=== PATIENT | female | born 1995 | race African-American/Black ===

== ENCOUNTER 2021-08-25 19:34 | Emergency (ER) | payer SELFPAY ==
[~2021-08-25] VITALS: Ht 170.2 cm; Wt 73.5 kg
--- NOTE | 2021-08-25 19:37 | NUR ---
Dr. Sanchez at [facility] to exam patient.
[2021-08-25] MEDS ORDERED: DIVALPROEX 500 MG TABEC PO ONE (19:40)
[2021-08-25 19:45] VITALS: BP 125/74
--- NOTE | 2021-08-25 19:52 | NUR ---
Patient refused blood drawn, Dr. Sanchez notified.
--- NOTE | 2021-08-25 20:15 | NUR ---
PT SEEN BY DR STEPHEN. PT REFUSED BLOOD DRAW AND UA.
--- NOTE | 2021-08-25 20:17 | NUR ---
Patient spoke with Dr. Sanchez and requested to go home.
--- NOTE | 2021-08-25 20:30 | NUR ---
PT ACTING IRRATIONAL AND YELLING WHILE WALKING AROUND THE ER. PT SIGNED AMA AND [facility]BER WAS CALLED FOR PT. PT ARGUING WITH STAFF AND WALKOD OFF THE PROPERTY PRIOR TO UBER ARRIVAL.
--- NOTE | 2021-08-25 20:30 | NUR ---
Patient does not wish to proceed with medical care recommended by DR STEPHEN. Patient given information related to possible complications, up to and including , which could occur as a result of leaving hospital at this time. Patient verbalizes understanding of risks involved leaving against medical advice. Patient has signed AMA form.
== END 2021-08-25 20:25 | disposition left against medical advice (07) ==
LOC: MED 19:34
DX: R56.9 Unspecified convulsions (principal)
CPT/HCPCS: 93005; 99283

== ENCOUNTER 2022-05-18 00:25 | Emergency (ER) | payer SELFPAY ==
[~2022-05-18] VITALS: Ht 167.6 cm; Wt 61.7 kg
[2022-05-18 00:25] VITALS: BP 144/86
--- NOTE | 2022-05-18 00:33 | NUR ---
Gina hook in [facility] - 05/18/22 at 0033 by CHATA PT DIONY W[place]. TAKEN TO BED 9
--- NOTE | 2022-05-18 00:33 | NUR ---
PT BIBA TO BED 09
[2022-05-18] MEDS ORDERED: LORazepam 2 MG/ML VIAL IM ONE ×2 (00:35→07:35)
--- NOTE | 2022-05-18 01:23 | NUR ---
Patient resting in bed, awake, chest rise and fall symmetrical, no c/o pain or s/s of distress.
--- NOTE | 2022-05-18 03:10 | NUR ---
Patient resting in bed with eyes closed, chest rise and fall symmetrical, no c/o pain or s/s of distress.
--- NOTE | 2022-05-18 04:15 | NUR ---
Gina hook in ED - 05/18/22 at 0428 by RYLEE F/C INSERTED WITH IMMEDIATE RETURN CLEAR ALEXANDER COLORED URINE. UA OBTAINED AND SENT TO LAB
--- NOTE | 2022-05-18 05:09 | NUR ---
Patient resting in bed with eyes closed, chest rise and fall symmetrical, no c/o pain or s/s of distress.
[2022-05-18 05:30] VITALS: BP 128/74
--- NOTE | 2022-05-18 06:55 | NUR ---
Patient resting in bed with eyes closed, chest rise and fall symmetrical, no c/o pain or s/s of distress.
--- NOTE | 2022-05-18 07:11 | NUR ---
TELEPSYCH, DR. DIETZ, SPEAKING WITH PATIENT VIA REMOTE COMMUNICATION
--- NOTE | 2022-05-18 07:15 | NUR ---
Change of shift report given to AM shift Nurse Giselle. AM shift Nurse Giselle verbalized understanding of report, no further questions.
--- NOTE | 2022-05-18 07:18 | NUR ---
PT MOVED TO ER BED 5, SI PRECAUTIONS IN PLACE
--- NOTE | 2022-05-18 07:34 | NUR ---
RECEIVED CALL BACK FROM DR DIETZ, CALL TRANSFERRED TO DR WORLEY. PT TO BE PLACED ON 5150 HOLD. [facility] [place] CONTACTED
[2022-05-18] MEDS ORDERED: HALOPERIDOL IM 5 MG/ML VIAL IM ONE (07:35)
[2022-05-18] MEDS ORDERED: diphenhydrAMINE 50 MG/ML VIAL IM ONE (07:35)
--- NOTE | 2022-05-18 07:39 | NUR ---
PT BECAME INCREASINGLY AGGRESSIVE WITH STAFF, THROWING TRASH CANS. PT RAN OUT OF ER. [facility] CONTACTED FOR ASSISTANCE.
--- NOTE | 2022-05-18 07:51 | NUR ---
[place] [employer] OFFICER ELDER HERE, REPORT GIVEN
--- NOTE | 2022-05-18 08:29 | NUR ---
[place] [employer] OFFICERS ALEXA AND JORGE IN ER. STATED THEY HAVE THE PT WITH ANOTHER OFFICER OFF [facility]. STATED THEY DID A 5150 EVALUATION ON HER AND SHE DOES NOT MEET CRITERIA FOR HOLD. STATED THEY ARE TAKING HER TO LONG-TERM. DR GROSSMAN PRESENT FOR CONVERSATION. SENIOR DESIGNER DAVION MADE AWARE. PATIENT ELOPED FROM FACILITY. DISCHARGE INSTRUCTIONS NOT GIVEN TO PATIENT. DR. GROSSMAN NOTIFIED. Addendum: 05/18/22 at 0847 by [email or web address] INCIDENT #[id number]
== END 2022-05-18 07:39 | disposition left against medical advice (07) ==
LOC: MED 00:25
DX: F15.10 Other stimulant abuse, uncomplicated (principal); Z59.00 Homelessness unspecified
CPT/HCPCS: 96372; 99285; J1200; J1630; J2060

== ENCOUNTER 2022-06-12 21:01 | Emergency (ER) | payer SELFPAY ==
[~2022-06-12] VITALS: Ht 170.2 cm; Wt 68.0 kg
[2022-06-12 21:02] VITALS: BP 125/64
--- NOTE | 2022-06-12 21:06 | NUR ---
PT TO BED 6
--- NOTE | 2022-06-12 21:14 | NUR ---
PT IN GOWN ALL PERSONAL BELONGINGS TAGGED AND BAGGED. ALL ITEMS IN ROOM REMOVED FOR PT SAFTEY
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
[2022-06-12] MEDS ORDERED: NACL 0.9% 1,000 ML IV ONE (21:30)
[2022-06-12 22:25] LABS: BASOPHILS % (AUTO) 0.4 % (0.0-2.0); EOSINOPHILS # (AUTO) 0.3 K/uL (0-0.4); HEMATOCRIT 33.1 % (36-48); HEMOGLOBIN 11.2 g/dL (12.0-16.0); LYMPHOCYTES # (AUTO) 2.5 K/uL (2.5-16.5); LYMPHOCYTES % (AUTO) 29.6 % (20.5-51.1); MEAN CORPUSCULAR HEMOGLOBIN 29 pg (27-31); MEAN CORPUSCULAR HGB CONC 34 g/dL (33-37); MEAN CORPUSCULAR VOLUME 86.4 fL (80-94); MONOCYTES # (AUTO) 0.5 K/uL (0.8-1.0); MONOCYTES % (AUTO) 6.5 % (1.7-9.3); NEUTROPHILS # (AUTO) 5.1 K/uL (1.8-7.7); NEUTROPHILS % (AUTO) 60.5 % (42.2-75.2); PLATELET COUNT (AUTO) 306 K/uL (140-450); RED BLOOD CELL COUNT(AUTO) 3.83 MIL/uL (4.20-5.40); RED CELL DISTRIBUTION WIDTH 15.3 % (11.6-13.7); WHITE BLOOD COUNT (AUTO) 8.4 K/uL (4.8-10.8)
--- NOTE | 2022-06-12 22:25 | NUR ---
22G IV CATH PLACED R AC LABS OBTAINED. COVID SWABS COLLECTED AND SENT
[2022-06-12 22:50] LABS: ALBUMIN 3.3 g/dL (3.4-5.0); ANION GAP 11.9 (8-16); CARBON DIOXIDE 23.9 mmol/L (21-32); CREATININE 0.6 mg/dL (0.6-1.3); POTASSIUM 3.8 mmol/L (3.5-5.1); TOTAL BILIRUBIN 0.2 mg/dL (0.0-1.0)
--- NOTE | 2022-06-13 02:00 | NUR ---
PT IS UP TO BATHROOM. ATTEMPTED TO COLLECT URINE. IS NON COMPLIANT TO COLLECT. IS YELLING OUT. SECURITY TO STANDBY
--- NOTE | 2022-06-13 02:46 | NUR ---
FOOD PROVIDED TO PT. PT IS ASLEEP BED AT LOWEST POSITION SIDE RAILS UP X1. RESP EVEN AND UNLABORED.
--- NOTE | 2022-06-13 04:40 | NUR ---
PT SLEEPING RESP EVEN AND UNLABORED. BED AT LOWEST LEVEL SIDE RAILS UP X2. Q15 SI CHECKS
--- NOTE | 2022-06-13 06:43 | NUR ---
ATTEMPTED TO OBATAIN URINE NONSUCCESSFUL
--- NOTE | 2022-06-13 07:15 | NUR ---
REPORT RECEIVED FROM JEROME ANDERSON. ASSUMED CARE AT THIS TIME
--- NOTE | 2022-06-13 07:25 | NUR ---
PT COMBATIVE AND AGRESSIVE W/ STAFF. VERBAL THREATHING AND REFUSING TO KEEP GOWN ON. RUNNING BEHIND NURSING STATION. SECURITY AND CODE SAINI CALLED
[2022-06-13] MEDS ORDERED: HALOPERIDOL IM 5 MG/ML VIAL ONE (07:27)
[2022-06-13] MEDS ORDERED: diphenhydrAMINE 50 MG/ML VIAL ONE (07:29)
[2022-06-13] MEDS ORDERED: LORazepam 2 MG/ML VIAL ONE (07:29)
[2022-06-13] MEDS ORDERED: LORazepam 2 MG/ML VIAL IM ONE (07:40)
[2022-06-13] MEDS ORDERED: diphenhydrAMINE 50 MG/ML VIAL IM ONE (07:40)
[2022-06-13] MEDS ORDERED: HALOPERIDOL IM 5 MG/ML VIAL IM ONE (07:40)
--- NOTE | 2022-06-13 08:00 | NUR ---
PT PULLED IV OUT. GAUZE APPLIED
--- NOTE | 2022-06-13 09:28 | NUR ---
# 15 FR Straight urinary catheter inserted utilizing sterile technique. Immediate return of 75 ml clear/straw urine noted. Urine sample collected and sent to lab. Pt tolerated procedure well.
--- NOTE | 2022-06-13 09:33 | NUR ---
Urine collection collected, walked to lab and handed to CPT Godfrey. Log book completed.
[2022-06-13 10:27] LABS: APPEARANCE,URINE CLEAR (CLEAR); BILIRUBIN,URINE NEGATIVE (NEGATIVE); BLOOD, URINE NEGATIVE (NEGATIVE); COLOR,URINE YELLOW (YELLOW); LEUKOCYTE ESTERASE ,URINE NEGATIVE (NEGATIVE); NITRITE, URINE NEGATIVE (NEGATIVE); PH,URINE 7.5 (5.0-9.0); UGLUCOSE NEGATIVE (NEGATIVE)
[2022-06-13 11:10] VITALS: BP 133/68
--- NOTE | 2022-06-13 16:28 | NUR ---
PT MEDICALLY CLEARED BY DR WORLEY
[2022-06-13 16:43] LABS: BENZODIAZEPINE, URINE POSITIVE ng/mL (NEG <=200); CANNABINOID, URINE POSITIVE ng/mL (NEG <=50)
[2022-06-13 16:44] LABS: BARBITURATE, URINE NEGATIVE ng/ml (NEG <=200); COCAINE, URINE NEGATIVE ng/mL (NEG <=300); OPIATE, URINE NEGATIVE ng/mL (NEG <=2000); PHENCYCLIDINE SCREEN,URINE NEGATIVE ng/mL (NEG <=25)
--- NOTE | 2022-06-13 18:52 | NUR ---
PT ON TELEPSYCH W/ MD OWENS
--- NOTE | 2022-06-13 19:00 | NUR ---
PT CLEARED FOR DISCHARGE BY DR WORLEY AND DR OWENS TELEPSYCH. PT REFUSING TO LEAVE AND GETTING AGGRESSIVE AND SPITTING AT STAFF. [facility] CALLED FOR ASSISTANCE
--- NOTE | 2022-06-13 19:36 | NUR ---
PT ESCORTED BY SECURITY OUT OF THE ER
--- NOTE | 2022-06-13 19:37 | NUR ---
Note miladys in EDM - 06/13/22 at 1947 by PHSEP Patient discharged with v/s stable. Written and verbal after care instructions FOR STIMULANT USE DISORDER given and explained. Patient verbalized understanding. Ambulatory with steady gait. All questions addressed prior to discharge. Advised to follow up with PMD.
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
[2022-06-13] MEDS ORDERED: risperiDONE 1 MG TAB PO SCH (21:00)
== END 2022-06-13 19:37 | disposition home or self-care (01) ==
LOC: MED 21:01
DX: R45.851 Suicidal ideations (principal); Z20.822 Contact with and (suspected) exposure to COVID-19; F15.90 Other stimulant use, unspecified, uncomplicated; Z79.899 Other long term (current) drug therapy
CPT/HCPCS: 36415; 80053; 80305; 81003; 84703; 85025; 87426; 87635; 96361; 96372; 99285; C1758; C9803; J1200; J1630; J2060; 96374; 96375; 96376